=== PATIENT | male | born 1940 | race Caucasian/White ===

== ENCOUNTER 2025-04-06 15:02 | Emergency (ER) | payer MEDICARE, BC, SELFPAY ==
[2025-04-06 15:29] VITALS: BP 154/86; PULSE 72; RESP 20; TEMP 36.6; O2SAT 100; BMI 39.4
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
--- NOTE | 2025-04-06 16:31 | DI.US.S_ITS ---
PROCEDURE: US PERIPH VENOUS LOW EXTREM LT INDICATIONS: left leg numb knee down TECHNIQUE: Real-time imaging, as well as color and pulse Doppler interrogation, were performed of the lower extremity deep veins from the inguinal ligament to the popliteal fossa, with documentation of the visualized calf veins. COMPARISON: None. FINDINGS: The common femoral, femoral, popliteal, and the visualized calf veins are normally compressible, and free of intraluminal thrombus. Color and pulse Doppler demonstrate normal phasic intraluminal flow. There is normal augmentation response to distal compression maneuver. IMPRESSION: No findings of lower extremity deep venous thrombosis. Dictated by: Rk Lopez M.D. on 04/06/2025 at 17:45 Approved by: Rk Lopez M.D. on 04/06/2025 at 17:46
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
--- NOTE | 2025-04-06 16:31 | DI.RAD.S_ITS ---
PROCEDURE: XR KNEE LT 3V INDICATIONS: fall 3 weeks ago; numb from knee down TECHNIQUE: 3 views of the knee were acquired. COMPARISON: None. FINDINGS: Bones: No fractures or dislocations. Medial unicompartmental arthroplasty without evidence of hardware complication. No suspicious bony lesions. Moderate degenerative changes, most pronounced within the lateral patellofemoral compartment. Soft tissues: Trace joint effusion. No suspicious soft tissue calcifications. Atherosclerotic vascular calcifications. IMPRESSION: No acute fractures are seen. Medial unicompartmental arthroplasty without evidence of complication. Moderate degenerative changes. Dictated by: Rk Lopez M.D. on 04/06/2025 at 17:06 Approved by: Rk Lopez M.D. on 04/06/2025 at 17:07
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
[2025-04-06 19:29] VITALS: PULSE 69; RESP 16; O2SAT 99
[2025-04-06 19:30] VITALS: BP 183/88
== END 2025-04-06 20:23 | disposition home or self-care (01) ==
PROVIDERS: Emergency Provider Student in an Organized Health Care Education/Training Program
DX: G93.89 Other specified disorders of brain (principal); I48.91 Unspecified atrial fibrillation; Z95.0 Presence of cardiac pacemaker; C61 Malignant neoplasm of prostate
CPT/HCPCS: 70450; 72131; 73562; 93971; 99281; 99284